=== PATIENT | female | born 1945 | race Caucasian/White ===

== ENCOUNTER 2017-05-17 09:24 | Inpatient (IN) | payer OTHER, MEDICARE ==
[~2017-05-17] VITALS: Ht 154.9 cm; Wt 45.0 kg
[2017-05-17] VITALS (8 sets, daily range): BP systolic 116–132; BP diastolic 65–77; PULSE 51–83; RESP 17–18; TEMP 97.8–98.2; O2SAT 95–100
[2017-05-17] MEDS ORDERED: SODIUM CHLORIDE 0.9% FLUSH 10 ML FLUSH IVF PRN (09:45)
--- NOTE | 2017-05-17 09:53 | PD ---
HPI Chief Complaint: Neuro Symptoms/ Deficits Time Seen by Provider: 09:49 Travel History International Travel<30 days: No Contact w/Intl Traveler<30days: No Traveled to known affect area: No History of Present Illness HPI 71-year-old female with history of no significant past medical issues except smoking, presents to the ER today because she woke up at around 4:30 AM this morning feeling generally weak, headache, felt like her right side wasn't feeling right, and then woke up again at 7:30 this morning and had a right facial droop, right sided weakness, but was able to get herself to her neighbors house and called ambulance. On initial evaluation, EMS noted that she did have some right facial droop, right arm weakness, right leg weakness. She however, he is feeling better, the weakness is improving. She states that the last time she felt normal was around 2 AM. She states the headache has gone away. She denies a chest pains, shortness of breath, or any other symptoms. She denies any previous episodes. Modifying Factors: None Associated Signs & Symptoms: Headache, right arm and leg weakness, right facial droop Risk Factors: None PFSH Past Medical History Medical History: Denies Significant Hx Tetanus Vaccination: > 5 Years Influenza Vaccination: No Past Surgical History Surgical History: No Previous Surgery Social History Alcohol Use: No Tobacco Use: Yes (1/2 PPD) Substance Use: No Allergies-Medications (Allergen,Severity, Reaction): Coded Allergies: No Known Allergies (Unverified , 05/17/17) Reported Meds & Prescriptions Reported Meds & Active Scripts Active No Active Prescriptions or Reported Medications Review of Systems Except as stated in HPI: all other systems reviewed are Neg Physical Exam Narrative GENERAL: Well-developed elderly white female patient currently in mild distress. Awake and oriented 3. SKIN: Focused skin assessment warm/dry. HEAD: Atraumatic. Normocephalic. EYES: Pupils equal and round. No scleral icterus. No injection or drainage. ENT: No nasal bleeding or discharge. Mucous membranes pink and moist. NECK: Trachea midline. No JVD. CARDIOVASCULAR: Regular rate and rhythm. No murmur appreciated. RESPIRATORY: No accessory muscle use. Clear to auscultation. Breath sounds equal bilaterally. GASTROINTESTINAL: Abdomen soft, non-tender, nondistended. Hepatic and splenic margins not palpable. MUSCULOSKELETAL: No obvious deformities. No clubbing. No cyanosis. No edema. NEUROLOGICAL: Awake and alert. No obvious cranial nerve deficits except for mild facial asymmetry. Motor grossly within normal limits. Normal speech. No pronator drift. PSYCHIATRIC: Appropriate mood and affect; insight and judgment normal. Data Data Last Documented VS Vital Signs Date Time Temp Pulse Resp B/P (MAP) Pulse Ox O2 Delivery O2 Flow Rate FiO2 05/17/17 09:51 18 97 Nasal Cannula 2.00 05/17/17 09:37 83 05/17/17 09:33 98.1 132/77 (95) Orders Orders Electrocardiogram (05/17/17 09:40) Prothrombin Time / Inr (Pt) (05/17/17 09:40) Act Partial Throm Time (Ptt) (05/17/17 09:40) Complete Blood Count With Diff (05/17/17 09:40) Comprehensive Metabolic Panel (05/17/17 09:40) Ct Brain W/O Iv Contrast(Rout) (05/17/17 09:40) Chest, Single Ap (05/17/17 09:40) Ecg Monitoring (05/17/17 09:40) Iv Access Insert/Monitor (05/17/17 09:40) Oximetry (05/17/17 09:40) Sodium Chloride 0.9% Flush (Ns Flush) (05/17/17 09:45) Aspirin (Aspirin) (05/17/17 10:45) Labs Laboratory Tests Test 05/17/17 09:45 White Blood Count 4.0 TH/MM3 Red Blood Count 4.55 MIL/MM3 Hemoglobin 14.3 GM/DL Hematocrit 43.1 % Mean Corpuscular Volume 94.7 FL Mean Corpuscular Hemoglobin 31.4 PG Mean Corpuscular Hemoglobin Concent 33.1 % Red Cell Distribution Width 15.5 % Platelet Count 232 TH/MM3 Mean Platelet Volume 7.7 FL Neutrophils (%) (Auto) 60.0 % Lymphocytes (%) (Auto) 29.5 % Monocytes (%) (Auto) 8.2 % Eosinophils (%) (Auto) 0.9 % Basophils (%) (Auto) 1.4 % Neutrophils # (Auto) 2.4 TH/MM3 Lymphocytes # (Auto) 1.2 TH/MM3 Monocytes # (Auto) 0.3 TH/MM3 Eosinophils # (Auto) 0.0 TH/MM3 Basophils # (Auto) 0.1 TH/MM3 CBC Comment DIFF FINAL Differential Comment Prothrombin Time 11.2 SEC Prothromb Time International Ratio 1.0 RATIO Activated Partial Thromboplast Time 23.9 SEC Blood Urea Nitrogen 7 MG/DL Creatinine 0.63 MG/DL Random Glucose 123 MG/DL Total Protein 6.6 GM/DL Albumin 3.5 GM/DL Calcium Level 8.5 MG/DL Alkaline Phosphatase 90 U/L Aspartate Amino Transf (AST/SGOT) 15 U/L Alanine Aminotransferase (ALT/SGPT) 15 U/L Total Bilirubin 0.4 MG/DL Sodium Level 141 MEQ/L Potassium Level 3.6 MEQ/L Chloride Level 106 MEQ/L Carbon Dioxide Level 25.8 MEQ/L Anion Gap 9 MEQ/L Estimat Glomerular Filtration Rate 93 ML/MIN MDM Medical Decision Making Medical Screen Exam Complete: Yes Emergency Medical Condition: Yes Medical Record Reviewed: Yes Interpretation(s) Laboratory Tests Test 05/17/17 09:45 Monocytes (%) (Auto) 8.2 % (0.0-8.0) Activated Partial Thromboplast Time 23.9 SEC (24.3-30.1) Random Glucose 123 MG/DL (74-106) Last [address] 05/17/17 0940 Signed Impressions: Service Date/Time: Wednesday, May 17, 2017 09:54 - CONCLUSION: No acute intracranial abnormality is identified. There is an old lacune in the left basal ganglia. Chan Villegas MD Chest X-Ray 05/17/17 0940 Signed Impressions: Service Date/Time: Wednesday, May 17, 2017 09:42 - CONCLUSION: No acute cardiopulmonary abnormality is identified. Chan Villegas MD Differential Diagnosis Headache, right facial droop, right sided weakness: Metabolic issues versus atypical migraine versus CVA versus acute intracranial processes Narrative Course Patient's weakness seems to be improving. The only thing of seeing in the ER is a facial asymmetry. CAT scan did not show any signs of acute intercranial processes and aspirin was given in the ER. Lab work was otherwise unremarkable. At this point, my plan would be to admit the patient for further evaluation treatment. She is not a TPA candidate especially considering start time of possibly at 2 AM. Case was discussed with Dr. Cooper for admission. Diagnosis Primary Impression: CVA (cerebral vascular accident) Admitting Information Admitting Physician Requests: Admit Scripts No Active Prescriptions or Reported Meds Maya Jo MD May 17, 2017 09:52
--- NOTE | 2017-05-17 10:03 | RADRPT ---
EXAM DATE/TIME: 05/17/2017 09:42 [facility] COMPARISON: No previous studies available for comparison. INDICATIONS : Short of breath MEDICAL HISTORY : Cardiovascular disease. SURGICAL HISTORY : None. ENCOUNTER: Initial ACUITY: 1 day PAIN SCORE: 0/10 LOCATION: chest FINDINGS: Portable AP view of the chest demonstrates a normal-sized cardiac silhouette. No effusion, consolidat ion, or pneumothorax is visualized. The bones and soft tissues demonstrate no acute abnormality. EKG lines overlie the patient. CONCLUSION: No acute cardiopulmonary abnormality is identified. Chan Villegas MD on May 17, 2017 at 10:01 Board Certified Radiologist. This report was verified electronically.
[2017-05-17 10:23] LABS: AUTOMATED NEUTROPHIL # 2.4 TH/MM3 (1.8-7.7); BASOPHIL # 0.1 TH/MM3 (0-0.2); BASOPHIL % 1.4 % (0.0-2.0); EOSINOPHIL % 0.9 % (0.0-4.0); HEMATOCRIT 43.1 % (35.0-46.0); HEMO FLAGS DIFF FINAL; LYMPH % 29.5 % (9.0-44.0); LYMPHOCYTE # 1.2 TH/MM3 (1.0-4.8); MEAN CELL VOLUME 94.7 FL (80.0-100.0); MEAN CORPUSCULAR HEMOGLOBIN 31.4 PG (27.0-34.0); MEAN CORPUSCULAR HGB CONC 33.1 % (32.0-36.0); MONO % 8.2 % (0.0-8.0); PLATELET COUNT 232 TH/MM3 (150-450); RED BLOOD COUNT 4.55 MIL/MM3 (4.00-5.30); RED CELL DISTRIBUTION WIDTH 15.5 % (11.6-17.2)
--- NOTE | 2017-05-17 10:25 | RADRPT ---
EXAM DATE/TIME: 05/17/2017 09:54 [facility] COMPARISON: No previous studies available for comparison. INDICATIONS : Right sided weakness; right facial droop. RADIATION DOSE: 26.62 CTDIvol (mGy) MEDICAL HISTORY : None SURGICAL HISTORY : None. ENCOUNTER: Initial ACUITY: 1 day PAIN SCALE: 0/10 LOCATION: cranial TECHNIQUE: Multiple contiguous axial images were obtained of the head. Using automated exposure control and adj ustment of the mA and/or kV according to patient size, radiation dose was kept as low as reasonably a chievable to obtain optimal diagnostic quality images. DICOM format image data is available electro nically for review and comparison. FINDINGS: CEREBRUM: There is mild generalized atrophy within the range of expected given the patient's age. Ventricles ar e normal in size. There is a well-defined 5 mm low density in the left basal ganglia. No evidence of midline shift, mass lesion, hemorrhage or acute infarction. No extra-axial fluid collections are se en. POSTERIOR FOSSA: The cerebellum and brainstem demonstrate no acute finding. The 4th ventricle is midline. The cerebe llopontine angle is unremarkable. EXTRACRANIAL: Visualized sinuses are clear. SKULL: The calvaria is intact. No evidence of skull fracture. CONCLUSION: No acute intracranial abnormality is identified. There is an old lacune in the left basal ganglia. Chan Villegas MD on May 17, 2017 at 10:21 Board Certified Radiologist. This report was verified electronically.
[2017-05-17 10:31] LABS: APTT (PATIENT) 23.9 SEC (24.3-30.1); PROTHROMBIN TIME - PATIENT 11.2 SEC (9.8-11.6)
[2017-05-17 10:45] LABS: ANION GAP 9 MEQ/L (5-15); AST (GOT) 15 U/L (15-37); BICARBONATE 25.8 MEQ/L (21.0-32.0); BLOOD UREA NITROGEN 7 MG/DL (7-18); CHLORIDE 106 MEQ/L (98-107); GLOMERULAR FILTRATION RATE 93 ML/MIN (>89); POTASSIUM 3.6 MEQ/L (3.5-5.1); SODIUM (NA) 141 MEQ/L (136-145)
[2017-05-17] MEDS ORDERED: ASPIRIN 325 MG TAB PO ONE (10:45)
[2017-05-17 10:49] LABS: ALKALINE PHOSPHATASE 90 U/L (45-117); ALT (GPT) 15 U/L (10-53); TOTAL BILIRUBIN ADULT 0.4 MG/DL (0.2-1.0)
[2017-05-17] MEDS ORDERED: ACETAMINOPHEN 325 MG TAB PO PRN ×2 (11:15)
[2017-05-17] MEDS ORDERED: NALOXONE HCL 0.4 MG/ML AMP IV PUSH PRN (11:15)
[2017-05-17] MEDS ORDERED: SODIUM CHLORIDE 0.9% FLUSH 10 ML FLUSH IV FLUSH PRN ×2 (11:15→11:30)
[2017-05-17] MEDS ORDERED: ENOXAPARIN SODIUM 30 MG/0.3 ML SYRINGE SQ SCH (11:15)
--- NOTE | 2017-05-17 11:29 | HHI.HP ---
[facility] No Primary Care Physician Admission Diagnosis CVA/TIA Diagnoses: Chief Complaint: Right-sided neuro symptoms Travel History International Travel<30 Days: No Contact w/Intl Traveler <30 Da: No Traveled to Known Affected Are: No History of Present Illness 71-year-old female with past medical history of tobacco abuse who presented for right-sided neuro symptoms. The patient states she woke up about 4 AM to go to the bathroom and noticed a mild frontal headache. She went back to sleep until about 7:30 AM. She states she woke up about 7:30 AM and noticed that her right side was more numb. She states that her hand and arm were more weak and uncoordinated than normal. She also states that that time she noticed her speech was a little bit slurred. At this time she feels that the numbness, weakness, slurred speech has improved. The headache is resolved. She denies any swallowing difficulties or vision changes. She denies any chest pain, shortness breath, recent illness, nausea, vomiting, diarrhea. She has smoked for the past 50 years. She denies any previous episodes like this. The patient currently denies any symptoms. She says that she does not have any numbness or tingling. She says her strength is currently back to normal. She says she is still smoking and drinks 4-5 beers daily. Review of Systems Except as stated in HPI: all other systems reviewed are Neg Past Family Social History Past Medical History Patient denies Past Surgical History The patient denies Reported Medications None per patient Allergies: Coded Allergies: No Known Allergies (Unverified , 05/17/17) Active Ordered Medications Current Medications Medications (Trade) Dose Ordered Sig/Natacha Route Start Time Stop Time Status Last Admin (NS Flush) 2 ml UNSCH PRN IVF 05/17/17 09:45 Sodium Chloride 1,000 ml @ 75 mls/hr [id number] IV 05/17/17 11:02 (NS Flush) 2 ml UNSCH PRN IV FLUSH 05/17/17 11:15 (NS Flush) 2 ml BID IV FLUSH 05/17/17 21:00 (Tylenol) 650 mg Q4H PRN PO 05/17/17 11:15 (Lovenox Inj) 30 mg Q24H SQ 05/17/17 11:15 (Tylenol) 650 mg Q6H PRN PO 05/17/17 11:15 (Narcan Inj) 0.4 mg UNSCH PRN IV PUSH 05/17/17 11:15 (Diamond-Colace) 1 tab BID PO 05/17/17 21:00 Family History No known significant family medical history, denies stroke or TIA Social History She smokes 7-8 cigarettes daily for the past 50 years Drinks 4-5 beers daily, denies any problems with withdrawals Denies any drug use Physical Exam Vital Signs Vital Signs Date Time Temp Pulse Resp B/P (MAP) Pulse Ox O2 Delivery O2 Flow Rate FiO2 05/17/17 11:09 Nasal Cannula 2.00 05/17/17 09:51 18 97 Nasal Cannula 2.00 05/17/17 09:37 83 18 95 Room Air 05/17/17 09:33 98.1 83 18 132/77 (95) 95 Physical Exam GENERAL: Well-developed well-nourished. In no acute distress. SKIN: Warm and dry. No lesions noted. HEENT: Normocephalic. Pupils equal and round and reactive to light. EOMs intact. Mucous membranes pink and moist. CARDIOVASCULAR: Regular rate and rhythm. No murmur appreciated. RESPIRATORY: No accessory muscle use. Clear to auscultation. Breath sounds equal bilaterally. GASTROINTESTINAL: Abdomen soft, non-tender, nondistended. Bowel sounds x4. MUSCULOSKELETAL: No obvious deformities. No clubbing or cyanosis. No edema. NEUROLOGICAL: Awake and alert. Right-sided facial droop. No tongue deviation. Strength 4/5 on the right and 5/5 on the left. Sensation grossly intact bilaterally. No pronator drift. Normal speech. PSYCHIATRIC: Appropriate mood and affect; insight and judgment normal. Agree with above exam Laboratory Laboratory Tests Test 05/17/17 09:45 White Blood Count 4.0 Red Blood Count 4.55 Hemoglobin 14.3 Hematocrit 43.1 Mean Corpuscular Volume 94.7 Mean Corpuscular Hemoglobin 31.4 Mean Corpuscular Hemoglobin Concent 33.1 Red Cell Distribution Width 15.5 Platelet Count 232 Mean Platelet Volume 7.7 Neutrophils (%) (Auto) 60.0 Lymphocytes (%) (Auto) 29.5 Monocytes (%) (Auto) 8.2 Eosinophils (%) (Auto) 0.9 Basophils (%) (Auto) 1.4 Neutrophils # (Auto) 2.4 Lymphocytes # (Auto) 1.2 Monocytes # (Auto) 0.3 Eosinophils # (Auto) 0.0 Basophils # (Auto) 0.1 CBC Comment DIFF FINAL Differential Comment Prothrombin Time 11.2 Prothromb Time International Ratio 1.0 Activated Partial Thromboplast Time 23.9 Blood Urea Nitrogen 7 Creatinine 0.63 Random Glucose 123 Total Protein 6.6 Albumin 3.5 Calcium Level 8.5 Alkaline Phosphatase 90 Aspartate Amino Transf (AST/SGOT) 15 Alanine Aminotransferase (ALT/SGPT) 15 Total Bilirubin 0.4 Sodium Level 141 Potassium Level 3.6 Chloride Level 106 Carbon Dioxide Level 25.8 Anion Gap 9 Estimat Glomerular Filtration Rate 93 Result Diagram: 05/17/1745 05/17/17944 Imaging Last Impressions Head CT 05/17/17939 Signed Impressions: Service Date/Time: Wednesday, May 17, 2017 09:54 - CONCLUSION: No acute intracranial abnormality is identified. There is an old lacune in the left basal ganglia. Chan Villegas MD Chest X-Ray 05/17/17939 Signed Impressions: Service Date/Time: Wednesday, May 17, 2017 09:42 - CONCLUSION: No acute cardiopulmonary abnormality is identified. MD Brendon Samuel VTE Risk Assessment Robertrini VTE Risk Assessment: Mod/High Risk (score >= 2) Caprini Risk Assessment Model Point Value = 1 Point Value = 2 Point Value = 3 Point Value = 5 Age 41-60 Minor surgery BMI > 25 kg/m2 Swollen legs Varicose veins or History of unexplained or recurrent spontaneous Oral contraceptives or hormone replacement Sepsis (< 1 month) Serious lung disease, including pneumonia (< 1 month) Abnormal pulmonary function Acute myocardial infarction Congestive heart failure (< 1 month) History of inflammatory bowel disease Medical patient at bed rest Age 61-74 Arthroscopic surgery Major open surgery (> 45 min) Laparoscopic surgery (> 45 min) Malignancy Confined to bed (> 72 hours) Immobilizing plaster cast Central venous access Age >= 75 History of VTE Family history of VTE Factor V Leiden Prothrombin [id number] Lupus anticoagulant Anticardiolipin antibodies Elevated serum homocysteine Heparin-induced thrombocytopenia Other congenital or acquired thrombophilia Stroke (< 1 month) Elective arthroplasty Hip, pelvis, or leg fracture Acute spinal cord injury (< 1 month) Prophylaxis Regimen Total Risk Factor Score Risk Level Prophylaxis Regimen 0-1 Low Early ambulation 2 Moderate Order ONE of the following: *Sequential Compression Device (SCD) *Heparin 5000 units SQ BID 3-4 Higher Order ONE of the following medications: *Heparin 5000 units SQ TID *Enoxaparin/Lovenox 40 mg SQ daily (WT < 150 kg, CrCl > 30 mL/min) *Enoxaparin/Lovenox 30 mg SQ daily (WT < 150 kg, CrCl > 10-29 mL/min) *Enoxaparin/Lovenox 30 mg SQ BID (WT < 150 kg, CrCl > 30 mL/min) AND/OR *Sequential Compression Device (SCD) 5 or more Highest Order ONE of the following medications: *Heparin 5000 units SQ TID (Preferred with Epidurals) *Enoxaparin/Lovenox 40 mg SQ daily (WT < 150 kg, CrCl > 30 mL/min) *Enoxaparin/Lovenox 30 mg SQ daily (WT < 150 kg, CrCl > 10-29 mL/min) *Enoxaparin/Lovenox 30 mg SQ BID (WT < 150 kg, CrCl > 30 mL/min) AND *Sequential Compression Device (SCD) Assessment and Plan Assessment and Plan 71-year-old female with past medical history of tobacco abuse who presented for right-sided neuro symptoms Acute CVA vs TIA: Patient with acute onset of right-sided neurologic symptoms earlier today which are improving, but not yet resolved. Long history of tobacco abuse. Reviewed: Head CT with no acute intracranial abnormality, old left basilar lacune. -Standard stroke protocol including stroke scale, head of bed flat, swallow eval , neuro checks, permissive hypertension for now -Monitor on telemetry -Check brain MRI/MRA, carotid ultrasound, echocardiogram -Consult neurology -PT/OT/ST -IVF -Aspirin The patient says her symptoms have resolved. Continue workup as above. Await neurology consultation. Stressed smoking cessation. Alcohol abuse: Denies problem with withdrawals. Thiamine, folate, multivitamins. Ativan as needed. Encouraged patient to cut down on the amount of beers she drinks daily. Tobacco abuse: Strongly encouraged cessation. DVT prophylaxis: SCDs Discussed Condition With Patient, Dr. Nino Attending Statement The exam, history, and the medical decision-making described in the above note were completed with the assistance of the mid-level provider. I reviewed and agree with the findings presented. I attest that I had a [id number] encounter with the patient on the same day, and personally performed and documented my assessment and findings in the medical record. Faizan Goldman May 17, 2017 11:29 Andrea Nino DO May 17, 2017 13:34
[2017-05-17] MEDS ORDERED: ENALAPRILAT 1.25 MG/ML VIAL IV PRN (11:30)
[2017-05-17] MEDS ORDERED: GLUCAGON 1 MG/ML VIAL OTHER PRN (11:30)
[2017-05-17] MEDS ORDERED: DEXTROSE 50% IN WATER 50 ML VIAL(D50) IV PUSH PRN (11:30)
[2017-05-17] MEDS ORDERED: LORazepam 2 MG/ML VIAL IV PUSH PRN (11:45)
[2017-05-17] MEDS: SODIUM CHLOR 0.9% 1000 ML INJ 1,000 ML IV SCH ×2 (11:49→14:44)
[2017-05-17] MEDS: INSULIN ASPART SUPPLEMENTAL SCALE SQ SCH ×3 (12:00→21:00)
--- NOTE | 2017-05-17 14:06 | RADRPT ---
EXAM DATE/TIME: 05/17/2017 13:17 [facility] COMPARISON: CT BRAIN W/O CONTRAST, May 17, 2017, 9:54. INDICATIONS : Right sided weakness. MEDICAL HISTORY : None. SURGICAL HISTORY : None. ENCOUNTER: Initial ACUITY: 1 day PAIN SCORE: 0/10 LOCATION: cranial TECHNIQUE: Multiplanar, multisequence MRI of the brain was performed without contrast. FINDINGS: CEREBRUM: The ventricles are normal for age. No evidence of midline shift, mass lesion, hemorrhage or acute in farction. No extraaxial fluid collections are seen. The pituitary gland and suprasellar cistern are normal in configuration. WHITE MATTER: On the flair weighted images there are several small punctate foci of increased signal noted in the w mehnaz matter radius along the right lateral ventricle. POSTERIOR FOSSA: The cerebellum and brainstem are intact. The 4th ventricle is midline. The cerebellopontine angle is unremarkable. The cerebellar tonsils are normal in position. DIFFUSION IMAGING: No focal areas of restricted diffusion are seen. No evidence of acute infarction. EXTRACRANIAL: The visualized portions of the orbits and paranasal sinuses are unremarkable. CONCLUSION: 1. No acute hemorrhage or mass effect. 2. Mild atrophy and chronic small vessel ischemic changes. Andrea Shen MD on May 17, 2017 at 14:03 Board Certified Radiologist. This report was verified electronically.
--- NOTE | 2017-05-17 14:51 | RADRPT ---
EXAM DATE/TIME: 05/17/2017 13:17 [facility] COMPARISON: MRI BRAIN W/O CONTRAST, May 17, 2017, 13:17. INDICATIONS : Right sided weakness. MEDICAL HISTORY : None. SURGICAL HISTORY : None. ENCOUNTER: Initial ACUITY: 1 day PAIN SCORE: 0/10 LOCATION: cranial Please note a normal MRA of the brain does not entirely exclude the possibility of a small aneurysm, nor the possibility of distal intracranial vessel disease. TECHNIQUE: 3D time of flight MRA was performed. Source images, multiplanar STS MIP, and 3D volume MIP reconstru ctions were reviewed. FINDINGS: There is adequate visualization of the major intracranial arteries out to the second order branches. 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 There ap pears to be an embolus to the left trifurcation territory and with limited flow to the temporal branc h.. Posteriorly, patient is right vertebral dominant. The basilar tapers distally and becomes quite dimin utive proximal to the confluence of the posterior cerebral arteries. Heart normal posterior cervical arteries also have a large component feeder from the posterior communicating arteries off the anterio r circulation. No aneurysmal disease. CONCLUSION: 1. 1. MRA characteristic of an embolic event to the left trifurcation territory as above. 2. Distal basilar also becomes quite diminutive with marked tapering proximal to the confluence with the posterior cerebral arteries. Both posterior cerebral arteries have a prominent feeder from the po sterior communicating arteries off the anterior circulation, however. May 17, 2017 at 14:39 Board Certified Radiologist. This report was verified electronically.
--- NOTE | 2017-05-17 18:59 | RADRPT ---
EXAM DATE/TIME: 05/17/2017 17:36 [facility] COMPARISON: MRA BRAIN W/O CONTRAST, May 17, 2017, 13:17. MRI BRAIN W/O CONTRAST, May 17, 2017, 13:17 . INDICATIONS : Cerebrovascular accident. MEDICAL HISTORY : Right sided weakness. SURGICAL HISTORY : None. ENCOUNTER: Initial ACUITY: 1 day PAIN SCORE: 2/10 LOCATION: Bilateral neck PEAK SYSTOLIC VELOCITIES (cm/sec): ICA/CCA RATIO: Right: UTO Left: UTO ICA: Right: UTO Left: UTO CCA: Right: 63.4 Left: 77.4 ECA: Right: 173.1 Left: 96.0 VERTEBRAL: Right: 163.3 antegrade Left: UTO Elevated flow velocities and ICA/CCA ratios have been found to correlate with increased degrees of vessel stenosis, calculated as percentage of diameter relative to a normal segment of distal ICA/CCA FINDINGS: RIGHT CAROTID: The common carotid artery is patent and unremarkable in appearance with unremarkable appearing wavefo rm. No flow could be identified in the internal carotid artery. The external carotid artery was paten t and demonstrated increased velocities. LEFT CAROTID: The common carotid artery is patent and unremarkable in appearance with normal appearing waveform. No flow could be identified in the internal carotid artery. The external carotid artery was patent and demonstrated normal velocities. VERTEBRAL ARTERIES: Antegrade flow in the right vertebral artery with elevated velocities. No flow could be identified in the left vertebral artery. MISCELLANEOUS: None. CONCLUSION: 1. The common carotid arteries and external carotid arteries are patent bilaterally. No blood flow co uld be obtained in either internal carotid artery consistent with occlusions. 2. No flow could be obtained in the left vertebral artery. 3. The right vertebral artery demonstrate antegrade flow with elevated velocity. Further evaluation with CT angiography is recommended. Andrea Shen MD on May 17, 2017 at 18:50 Board Certified Radiologist. This report was verified electronically.
[2017-05-17] MEDS: DOCUSATE SODIUM 50 MG/SENNA 8.6 MG TAB PO SCH (20:10)
[2017-05-17] MEDS ORDERED: IOHEXOL 350 MG/ML 10 ML VIAL (for RAD DIAG) IVCONTRAST ONE (20:30)
[2017-05-17] MEDS: SODIUM CHLORIDE 0.9% FLUSH 10 ML FLUSH IV FLUSH SCH (21:00)
[2017-05-17] MEDS ORDERED: SODIUM CHLORIDE 0.9% FLUSH 10 ML FLUSH IV FLUSH SCH (21:00)
--- NOTE | 2017-05-17 21:06 | MB ---
cc: ROZINA FRANCO M.D. DATE OF CONSULTATION 05/17/2017 HISTORY OF THE PRESENT ILLNESS She is a 71-year-old seen in neurological consultation. The patient lives alone and she woke up that 04:00 a.m. with a headache. It was frontal and not severe. She went to the bathroom and went back to sleep and then again woke up at 07:30 and there was a slight headache but then there was some numbness on the right arm and leg. It appears that when she arrived in the emergency room her numbness improved and she feels the headache is gone and she has no symptoms when I saw her this evening. She was apparently acting or noted to be normal around 2 o'clock in the morning. She was not felt to be a TPA candidate when she came to the emergency room this morning. She does not take any medications at home whatsoever. She admits having droopy eyes, especially the left side for quite some time and she saw the eye doctor for this and told that if she wanted to have an eye lift they would do that. She has no double vision. No blurriness. EXAMINATION The neurological exam showed the patient to be alert, pleasant, oriented. There is no facial weakness. She seems to have full or nearly full ocular movement. She has bilateral ptosis but left worse than right. The pupils were about same size and reactive. She gazed to the right and left but she may have some left eye gaze impairment downward and upward, though I was not completely convinced of this. The exam is somewhat difficult due to her droopy eye and I had to manually open, raise both eyelids. There is no speech difficulty. She raised the arms and [id number] testing is normal. The pyrotechnic assembler is symmetrical. She resists well at the lower extremities on the bedside exam. Her reflexes were 1+, diminished at the ankles. Plantar responses were flexor. IMAGING Ancillary data, the MRI brain showed no acute abnormality but interestingly the head MRA is showing an apparent embolus in the left trifurcation. The distal basilar is quite diminutive and there is a marked tapering proximal to the confluence with the posterior cerebral arteries. The customer support professional have prominent feature from the posterior communicating arteries. CBC is normal. Chemistries essentially normal, blood sugar being 123. ASSESSMENT Resolved neurological deficits including headaches and right sided weakness. Interestingly the MRA head shows left trifurcation embolism. Evidently at this point she is not a candidate for intervention. She has no significant medical history and a drinks four beers a day and smokes 10 cigarettes a day. We need to monitor heart looking for atrial fibrillation and need an echocardiogram. May need prolonged / extended heart monitor. The carotid ultrasound showed no flow in the either internal carotid artery consistent with occlusion. We will need further evaluation on this. We will request a CT angio neck. She also has ptosis left more than right with questionable left eye movement disorder but this is not acute and she is not symptomatic. On aspirin. On thiamine and I will check a lipid profile. I will follow the neurological care. Thank you for asking us to participate in her care. MD MARCK Erickson/KK /7:47 PM /8:44 PM
--- NOTE | 2017-05-17 21:34 | RADRPT ---
EXAM DATE/TIME: 05/17/2017 20:20 [place] COMPARISON: No previous studies available for comparison. INDICATIONS : Abnormal carotid ultrasound demonstrating bilateral internal carotid occlusion. Patient has right lucero ed weakness and abnormal MRA of the brain demonstrating an apparent embolus to the left trifurcation territory. IV CONTRAST: 75 cc Omnipaque 350 (iohexol) IV RADIATION DOSE: 13.07 CTDIvol (mGy) MEDICAL HISTORY : None SURGICAL HISTORY : None. ENCOUNTER: Initial ACUITY: 1 day PAIN SCALE: 0/10 LOCATION: Bilateral neck Elevated flow velocities and ICA/CCA ratios have been found to correlate with increased degrees of vessel stenosis, calculated as percentage of diameter relative to a normal segment of distal ICA/CCA. TECHNIQUE: Volumetric scanning was performed using a multirow detector CT scanner. The data was post processed with a variety of visualization algorithms including full-volume maximum intensity projection, multip lanar sliding thin-slab reformation, curved-planar reformation, and surface-rendering techniques. Us ing automated exposure control and adjustment of the mA and/or kV according to patient size, radiatio n dose was kept as low as reasonably achievable to obtain optimal diagnostic quality images. DICOM f ormat image data is available electronically for review and comparison. FINDINGS: AORTIC ARCH: There is a three-vessel origin of the great vessels from the aorta. No evidence of ostial narrowing. There is mild calcification. RIGHT CAROTID: The common carotid artery is intact. There is calcific plaque common carotid artery. The proximal int ernal carotid artery is occluded near its origin. The external carotid artery is intact. LEFT CAROTID: The common carotid artery is intact. There is calcific plaque in the common carotid artery with occlu ruth of the internal carotid artery at the origin. The external carotid artery is intact. VERTEBRALS: The left vertebral artery is small in size but is patent. The right is unremarkable. The basal artery is intact. No stenotic lesions are seen. CONCLUSION: 1. 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 2. The vertebral arteries are patent. The left vertebral artery is small in size. Andrea Shen MD on May 17, 2017 at 21:26 Board Certified Radiologist. This report was verified electronically.
[2017-05-18] VITALS (9 sets, daily range): BP systolic 70–190; BP diastolic 38–88; PULSE 60–71; RESP 16–18; TEMP 97.9–98.2; O2SAT 94–100
[2017-05-18 06:12] LABS: AUTOMATED NEUTROPHIL # 2.4 TH/MM3 (1.8-7.7); BASOPHIL # 0.1 TH/MM3 (0-0.2); BASOPHIL % 1.5 % (0.0-2.0); EOSINOPHIL # 0.1 TH/MM3 (0-0.4); EOSINOPHIL % 2.1 % (0.0-4.0); HEMATOCRIT 41.6 % (35.0-46.0); HEMO FLAGS DIFF FINAL; LYMPH % 36.6 % (9.0-44.0); LYMPHOCYTE # 1.7 TH/MM3 (1.0-4.8); MEAN CORPUSCULAR HEMOGLOBIN 31.5 PG (27.0-34.0); MEAN CORPUSCULAR HGB CONC 33.5 % (32.0-36.0); MONO % 10.3 % (0.0-8.0); NEUT % 49.5 % (16.0-70.0); PLATELET COUNT 208 TH/MM3 (150-450); RED BLOOD COUNT 4.42 MIL/MM3 (4.00-5.30); RED CELL DISTRIBUTION WIDTH 15.2 % (11.6-17.2); WHITE BLOOD COUNT 4.8 TH/MM3 (4.0-11.0)
[2017-05-18 06:28] LABS: ALT (GPT) 13 U/L (10-53); ANION GAP 7 MEQ/L (5-15); AST (GOT) 15 U/L (15-37); BICARBONATE 27.3 MEQ/L (21.0-32.0); BLOOD UREA NITROGEN 7 MG/DL (7-18); CHLORIDE 108 MEQ/L (98-107); GLOMERULAR FILTRATION RATE 137 ML/MIN (>89); POTASSIUM 3.6 MEQ/L (3.5-5.1); SODIUM (NA) 142 MEQ/L (136-145)
[2017-05-18 06:30] LABS: ALKALINE PHOSPHATASE 77 U/L (45-117); HDL CHOLESTEROL 82.3 MG/DL (40.0-60.0); LDL CHOLESTEROL 73 MG/DL (0-99); TOTAL BILIRUBIN ADULT 0.4 MG/DL (0.2-1.0)
[2017-05-18] MEDS: INSULIN ASPART SUPPLEMENTAL SCALE SQ SCH ×4 (08:00→21:00)
[2017-05-18] MEDS: ASPIRIN 81 MG CHEW TAB PO SCH (08:33)
[2017-05-18] MEDS: THIAMINE HCL 100 MG TAB PO SCH (08:34)
[2017-05-18] MEDS: FOLIC ACID 1 MG TAB PO SCH (08:34)
[2017-05-18] MEDS: SODIUM CHLORIDE 0.9% FLUSH 10 ML FLUSH IV FLUSH SCH ×2 (08:34→20:59)
[2017-05-18] MEDS: MULTIVITAMINS/MINERALS THERAPEUTIC TAB PO SCH (08:34)
[2017-05-18] MEDS: DOCUSATE SODIUM 50 MG/SENNA 8.6 MG TAB PO SCH ×2 (08:35→20:59)
--- NOTE | 2017-05-18 10:47 | HHI.PR ---
Subjective Remarks Follow-up for embolic TIA. RN at bedside. The patient is doing well today. She states she feels tired. She denies any further headache, slurred speech, numbness, tingling, weakness. She is back to her baseline. She wants to know the results of her neck imaging. Discussed results of current testing and CODE STATUS. Objective Vitals Vital Signs Date Time Temp Pulse Resp B/P (MAP) Pulse Ox O2 Delivery O2 Flow Rate FiO2 05/18/17 08:12 97.9 62 16 190/88 (122) 94 05/18/17 07:30 100 Nasal Cannula 2.00 05/18/17 04:11 98.2 64 18 120/56 (77) 100 05/18/17 04:02 70 05/18/17 01:27 98 Nasal Cannula 1.00 05/17/17 23:11 98.2 66 17 119/65 (83) 99 05/17/17 23:10 51 05/17/17 20:23 97.8 62 17 128/69 (88) 100 05/17/17 20:00 57 05/17/17 14:14 98.0 58 18 116/72 (87) 100 05/17/17 12:19 05/17/17 11:47 63 18 117/71 (86) 99 Nasal Cannula 2.00 05/17/17 11:09 Nasal Cannula 2.00 I/O 05/17/17 05/17/17 05/17/17 05/18/17 05/18/17 05/18/17 07:00 15:00 23:00 07:00 15:00 23:00 Intake Total 0 ml 265 ml Balance 0 ml 265 ml Intake Oral 0 ml IV Total 265 ml # Voids 0 2 Result Diagram: 05/18/17 0555 05/18/17 0555 Imaging Last Impressions Head CT 05/17/1740 Signed Impressions: Service Date/Time: Wednesday, May 17, 2017 09:54 - CONCLUSION: No acute intracranial abnormality is identified. There is an old lacune in the left basal ganglia. Chan Villegas MD Chest X-Ray 05/17/17 0940 Signed Impressions: Service Date/Time: Wednesday, May 17, 2017 09:42 - CONCLUSION: No acute cardiopulmonary abnormality is identified. Chan Villegas MD Neck CTA 05/17/17 Signed Impressions: Service Date/Time: Wednesday, May 17, 2017 20:20 - CONCLUSION: 1. 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 2. The vertebral arteries are patent. The left vertebral artery is small in size. Andrea Shen MD Head Magnetic Resonance Angiography 05/17/17 Signed Impressions: Service Date/Time: Wednesday, May 17, 2017 13:17 - CONCLUSION: 1. 1. MRA characteristic of an embolic event to the left trifurcation territory as above. 2. Distal basilar also becomes quite diminutive with marked tapering proximal to the confluence with the posterior cerebral arteries. Both posterior cerebral arteries have a prominent feeder from the posterior communicating arteries off the anterior circulation, however. May 17, 2017 at 14:39 Board Certified Radiologist. This report was verified electronically. Carotid Artery Ultrasound 05/17/17 Signed Impressions: Service Date/Time: Wednesday, May 17, 2017 17:36 - CONCLUSION: 1. The common carotid arteries and external carotid arteries are patent bilaterally. No blood flow could be obtained in either internal carotid artery consistent with occlusions. 2. No flow could be obtained in the left vertebral artery. 3. The right vertebral artery demonstrate antegrade flow with elevated velocity. Further evaluation with CT angiography is recommended. Andrea Shne MD Brain MRI 05/17/17 Signed Impressions: Service Date/Time: Wednesday, May 17, 2017 13:17 - CONCLUSION: 1. No acute hemorrhage or mass effect. 2. Mild atrophy and chronic small vessel ischemic changes. Andrea Shen MD Objective Remarks GENERAL: Well-developed well-nourished. In no acute distress. SKIN: Warm and dry. No lesions noted. HEENT: Normocephalic. Pupils equal and round. Mucous membranes pink and moist. Bilateral carotid bruits seem to be present on auscultation. CARDIOVASCULAR: Regular rate and rhythm. No murmur appreciated. RESPIRATORY: No accessory muscle use. Clear to auscultation. Breath sounds equal bilaterally. GASTROINTESTINAL: Abdomen soft, non-tender, nondistended. Bowel sounds x4. MUSCULOSKELETAL: No obvious deformities. No clubbing or cyanosis. No edema. NEUROLOGICAL: Awake and alert. Slight facial droop on the right. Strength 5/5 in all extremities. Normal speech. PSYCHIATRIC: Appropriate mood and affect; insight and judgment normal. A/P Assessment and Plan 71-year-old female with past medical history of tobacco abuse who presented for right-sided neuro symptoms Acute CVA vs TIA: Patient with acute onset of right-sided neurologic symptoms earlier today which are improving, but not yet resolved. Long history of tobacco abuse. Reviewed: Head CT with no acute intracranial abnormality, old left basilar lacune. EKG shows sinus bradycardia, rate 55. Brain MRI showed no acute hemorrhage or mass effect; chronic changes. Brain MRA showed embolic event to the left trifurcation territory. Carotid ultrasound showed bilateral internal carotid artery occlusions and no flow in the left vertebral. Neck CTA showed bilateral occlusion of the internal carotid arteries and patent vertebral arteries. -Standard stroke protocol including stroke scale, head of bed flat, swallow eval , neuro checks, permissive hypertension for now -Monitor on telemetry -Check echocardiogram -Consulted neurology, D/W Dr. Mock, and agrees with aspirin, recommends following up echocardiogram to rule out other embolic source and aggressive control of LDL, he will follow-up -PT/OT/ST, soft diet per ST -IVF -Aspirin -Lipid profile shows LDL 73, goal 60 per neurology, start Lipitor Carotid occlusions: Imaging as above. Discussed with vascular surgery, Dr. Cueva, recommends likely medical management but he will evaluate the patient. -Vascular surgery consulted -Continue aspirin and statin as above Alcohol abuse: No sign of withdrawals. Thiamine, folate, multivitamins. Ativan as needed. Full code Faizan Goldman May 18, 2017 10:47
[2017-05-18 13:27] LABS: HEMOGLOBIN A1a 1.2 %; HEMOGLOBIN A1b 1.4 %; HEMOGLOBIN Ao 85.2 %; HEMOGLOBIN F 0.4 %; HEMOGLOBIN LA1C 2.3 %; HEMOGLOBIN P3 3.7 %
--- NOTE | 2017-05-18 13:29 | PD.VS.CON ---
History of Present Illness Chief Complaint: Sudden onset Right sided weakness/Headache/Slurred speech Resolved Consult Requested by: History of Present Illness Ms. 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[employer]) Family History None - Per patient Home Medications No Active Prescriptions or Reported Meds Coded Allergies: No Known Allergies (Unverified , 05/17/17) Physical Exam Vitals/I&O Date Time Temp Pulse Resp B/P (MAP) Pulse Ox O2 Delivery O2 Flow Rate FiO2 05/18/17 11:16 98.2 71 16 125/79 (94) 97 05/18/17 08:12 97.9 62 16 190/88 (122) 94 05/18/17 07:30 100 Nasal Cannula 2.00 05/18/17 04:11 98.2 64 18 120/56 (77) 100 05/18/17 04:02 70 05/18/17 01:27 98 Nasal Cannula 1.00 05/17/17 23:11 98.2 66 17 119/65 (83) 99 05/17/17 23:10 51 05/17/17 20:23 97.8 62 17 128/69 (88) 100 05/17/17 20:00 57 05/17/17 14:14 98.0 58 18 116/72 (87) 100 05/18/17 05/18/17 05/18/17 07:00 15:00 23:00 Intake Total 265 ml Balance 265 ml Neuro: A&OX3 GCS15 Neck: No JVD distention Heart: +S1,S2 Extremities: equal chili powder mixer strength Upper extremities 5/5 strength Lower extremity 5/5 strength Pt ambulated the hallway w/o difficulty Laboratory Tests Test 05/18/17 05:55 White Blood Count 4.8 Red Blood Count 4.42 Hemoglobin 13.9 Hematocrit 41.6 Mean Corpuscular Volume 94.0 Mean Corpuscular Hemoglobin 31.5 Mean Corpuscular Hemoglobin Concent 33.5 Red Cell Distribution Width 15.2 Platelet Count 208 Mean Platelet Volume 7.6 Neutrophils (%) (Auto) 49.5 Lymphocytes (%) (Auto) 36.6 Monocytes (%) (Auto) 10.3 Eosinophils (%) (Auto) 2.1 Basophils (%) (Auto) 1.5 Neutrophils # (Auto) 2.4 Lymphocytes # (Auto) 1.7 Monocytes # (Auto) 0.5 Eosinophils # (Auto) 0.1 Basophils # (Auto) 0.1 CBC Comment DIFF FINAL Differential Comment Blood Urea Nitrogen 7 Creatinine 0.45 Random Glucose 81 Total Protein 6.2 Albumin 3.0 Calcium Level 8.2 Alkaline Phosphatase 77 Aspartate Amino Transf (AST/SGOT) 15 Alanine Aminotransferase (ALT/SGPT) 13 Total Bilirubin 0.4 Sodium Level 142 Potassium Level 3.6 Chloride Level 108 Carbon Dioxide Level 27.3 Anion Gap 7 Estimat Glomerular Filtration Rate 137 Triglycerides Level 74 Cholesterol Level 170 LDL Cholesterol 73 HDL Cholesterol 82.3 Cholesterol/HDL Ratio 2.06 Last [address] 05/17/1740 Signed Impressions: Service Date/Time: Wednesday, May 17, 2017 09:54 - CONCLUSION: No acute intracranial abnormality is identified. There is an old lacune in the left basal ganglia. Chan Villegas MD Chest X-Ray 05/17/1740 Signed Impressions: Service Date/Time: Wednesday, May 17, 2017 09:42 - CONCLUSION: No acute cardiopulmonary abnormality is identified. Chan Villegas MD Neck CTA 05/17/17 0000 Signed Impressions: Service Date/Time: Wednesday, May 17, 2017 20:20 - CONCLUSION: 1. 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 2. The vertebral arteries are patent. The left vertebral artery is small in size. Andrea Shen MD Head Magnetic Resonance Angiography 05/17/17 0000 Signed Impressions: Service Date/Time: Wednesday, May 17, 2017 13:17 - CONCLUSION: 1. 1. MRA characteristic of an embolic event to the left trifurcation territory as above. 2. Distal basilar also becomes quite diminutive with marked tapering proximal to the confluence with the posterior cerebral arteries. Both posterior cerebral arteries have a prominent feeder from the posterior communicating arteries off the anterior circulation, however. May 17, 2017 at 14:39 Board Certified Radiologist. This report was verified electronically. Carotid Artery Ultrasound 05/17/17 0000 Signed Impressions: Service Date/Time: Wednesday, May 17, 2017 17:36 - CONCLUSION: 1. The common carotid arteries and external carotid arteries are patent bilaterally. No blood flow could be obtained in either internal carotid artery consistent with occlusions. 2. No flow could be obtained in the left vertebral artery. 3. The right vertebral artery demonstrate antegrade flow with elevated velocity. Further evaluation with CT angiography is recommended. Andrea Shen MD Brain MRI 05/17/17 0000 Signed Impressions: Service Date/Time: Wednesday, May 17, 2017 13:17 - CONCLUSION: 1. No acute hemorrhage or mass effect. 2. Mild atrophy and chronic small vessel ischemic changes. Andrea Shen MD Assessment and Plan Assessment: (1) Carotid artery, internal, occlusion (2) CVA (cerebral vascular accident) Status: Acute Plan Ms. Rockwell seen and evaluated for carotid artery occlusion Recent finding post resolved TIA w/u Pt w/o deficits at present time Plan Reviewed CTA/U/S No surgical intervention at this time as bilateral internal carotid arteries are occluded Recommend CV risk factor modification (anticoagulation/statin therapy) Sidra BUENO [facility] [phone] Problem Qualifiers (1) Carotid artery, internal, occlusion: Qualified Codes: I65.23 - Occlusion and stenosis of bilateral carotid arteries Sidra Christianson May 18, 2017 13:29
--- NOTE | 2017-05-18 13:52 | EKG ---
Date Performed: 05/17/2017 Time Performed: 19:25:49 PTAGE: 71 years EKG: SINUS BRADYCARDIA BORDERLINE ECG NO PREVIOUS TRACING DOCTOR: Andre Fritz Interpretating Date/Time 05/18/2017 13:48:38
[2017-05-18] MEDS: SODIUM CHLOR 0.9% 1000 ML INJ 1,000 ML IV SCH ×2 (13:53→21:00)
--- NOTE | 2017-05-18 18:11 | HHI.PR ---
Review/Management Daily Summary 05/18 doing well no residual sx or deficits bila ica occlusion and left trifurcation thrombus/embolism asa, statin home soon, pending echo, no afib noted Subjective Subjective Comments No acute events reported No headache No chest pain No dyspnea Active Medications Current Medications Medications (Trade) Dose Ordered Sig/Natacha Route Start Time Stop Time Status Last Admin Sodium Chloride 1,000 ml @ 75 mls/hr [id number] IV 05/17/17 11:02 05/18/17 13:53 (Tylenol) 650 mg Q4H PRN PO 05/17/17 11:15 (Tylenol) 650 mg Q6H PRN PO 05/17/17 11:15 (Narcan Inj) 0.4 mg UNSCH PRN IV PUSH 05/17/17 11:15 (Diamond-Colace) 1 tab BID PO 05/17/17 21:00 05/17/17 20:10 (NS Flush) 2 ml BID IV FLUSH 05/17/17 21:00 05/18/17 08:34 (NS Flush) 2 ml UNSCH PRN IV FLUSH 05/17/17 11:30 (Vasotec Inj) 1.25 mg Q4H PRN IV 05/17/17 11:30 (Aspirin Chew) 81 mg DAILY PO 05/18/17 09:00 05/18/17 08:33 (NovoLOG SUPPLEMENTAL SCALE) 1 ACHS SQ 05/17/17 12:00 (D50w (Vial) Inj) 50 ml UNSCH PRN IV PUSH 05/17/17 11:30 (Glucagon Inj) 1 mg UNSCH PRN OTHER 05/17/17 11:30 (Folate) 1 mg DAILY PO 05/18/17 09:00 05/23/17 08:59 05/18/17 08:34 (Vitamin B1) 100 mg DAILY PO 05/18/17 09:00 05/18/17 08:34 (Theragran M Tab) 1 tab DAILY PO 05/18/17 09:00 05/23/17 08:59 05/18/17 08:34 (Ativan Inj) 1 mg Q4H PRN IV PUSH 05/17/17 11:45 (Lipitor) 10 mg HS PO 05/18/17 21:00 Allergies Allergies Coded Allergies No Known Allergies (Unverified05/17/17) Exam I&O / VS Vital Signs Date Time Temp Pulse Resp B/P (MAP) Pulse Ox O2 Delivery O2 Flow Rate FiO2 05/18/17 17:15 98.1 60 16 101/57 (72) 98 05/18/17 11:16 98.2 71 16 125/79 (94) 97 05/18/17 08:12 97.9 62 16 190/88 (122) 94 05/18/17 07:30 100 Nasal Cannula 2.00 05/18/17 04:11 98.2 64 18 120/56 (77) 100 05/18/17 04:02 70 05/18/17 01:27 98 Nasal Cannula 1.00 05/17/17 23:11 98.2 66 17 119/65 (83) 99 05/17/17 23:10 51 05/17/17 20:23 97.8 62 17 128/69 (88) 100 05/17/17 20:00 57 Objective Radiology Results Last [address] 05/17/17 0940 Signed Impressions: Service Date/Time: Wednesday, May 17, 2017 09:54 - CONCLUSION: No acute intracranial abnormality is identified. There is an old lacune in the left basal ganglia. Chan Villegas MD Chest X-Ray 05/17/17 0940 Signed Impressions: Service Date/Time: Wednesday, May 17, 2017 09:42 - CONCLUSION: No acute cardiopulmonary abnormality is identified. Chan Villegas MD Neck CTA 05/17/17 0000 Signed Impressions: Service Date/Time: Wednesday, May 17, 2017 20:20 - CONCLUSION: 1. 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 2. The vertebral arteries are patent. The left vertebral artery is small in size. Andrea Shen MD Head Magnetic Resonance Angiography 05/17/17 0000 Signed Impressions: Service Date/Time: Wednesday, May 17, 2017 13:17 - CONCLUSION: 1. 1. MRA characteristic of an embolic event to the left trifurcation territory as above. 2. Distal basilar also becomes quite diminutive with marked tapering proximal to the confluence with the posterior cerebral arteries. Both posterior cerebral arteries have a prominent feeder from the posterior communicating arteries off the anterior circulation, however. May 17, 2017 at 14:39 Board Certified Radiologist. This report was verified electronically. Carotid Artery Ultrasound 05/17/17 0000 Signed Impressions: Service Date/Time: Wednesday, May 17, 2017 17:36 - CONCLUSION: 1. The common carotid arteries and external carotid arteries are patent bilaterally. No blood flow could be obtained in either internal carotid artery consistent with occlusions. 2. No flow could be obtained in the left vertebral artery. 3. The right vertebral artery demonstrate antegrade flow with elevated velocity. Further evaluation with CT angiography is recommended. Andrea Shen MD Brain MRI 05/17/17 0000 Signed Impressions: Service Date/Time: Wednesday, May 17, 2017 13:17 - CONCLUSION: 1. No acute hemorrhage or mass effect. 2. Mild atrophy and chronic small vessel ischemic changes. Andrea Shen MD Micro and Labs Laboratory Tests Test 05/18/17 05:55 White Blood Count 4.8 Red Blood Count 4.42 Hemoglobin 13.9 Hematocrit 41.6 Mean Corpuscular Volume 94.0 Mean Corpuscular Hemoglobin 31.5 Mean Corpuscular Hemoglobin Concent 33.5 Red Cell Distribution Width 15.2 Platelet Count 208 Mean Platelet Volume 7.6 Neutrophils (%) (Auto) 49.5 Lymphocytes (%) (Auto) 36.6 Monocytes (%) (Auto) 10.3 Eosinophils (%) (Auto) 2.1 Basophils (%) (Auto) 1.5 Neutrophils # (Auto) 2.4 Lymphocytes # (Auto) 1.7 Monocytes # (Auto) 0.5 Eosinophils # (Auto) 0.1 Basophils # (Auto) 0.1 CBC Comment DIFF FINAL Differential Comment Blood Urea Nitrogen 7 Creatinine 0.45 Random Glucose 81 Total Protein 6.2 Albumin 3.0 Calcium Level 8.2 Alkaline Phosphatase 77 Aspartate Amino Transf (AST/SGOT) 15 Alanine Aminotransferase (ALT/SGPT) 13 Total Bilirubin 0.4 Sodium Level 142 Potassium Level 3.6 Chloride Level 108 Carbon Dioxide Level 27.3 Anion Gap 7 Estimat Glomerular Filtration Rate 137 Triglycerides Level 74 Cholesterol Level 170 LDL Cholesterol 73 HDL Cholesterol 82.3 Cholesterol/HDL Ratio 2.06 Scooter Mock MD May 18, 2017 18:11
[2017-05-18] MEDS: ATORVASTATIN 10 MG TAB PO SCH (20:59)
[2017-05-19] VITALS (10 sets, daily range): BP systolic 65–114; BP diastolic 37–60; PULSE 51–65; RESP 16–31; TEMP 97.6–98.6; O2SAT 95–97
[2017-05-19] MEDS: INSULIN ASPART SUPPLEMENTAL SCALE SQ SCH ×4 (08:00→20:33)
[2017-05-19] MEDS: SODIUM CHLORIDE 0.9% FLUSH 10 ML FLUSH IV FLUSH SCH ×2 (09:00→20:11)
[2017-05-19] MEDS: THIAMINE HCL 100 MG TAB PO SCH (09:44)
[2017-05-19] MEDS: FOLIC ACID 1 MG TAB PO SCH (09:44)
[2017-05-19] MEDS: MULTIVITAMINS/MINERALS THERAPEUTIC TAB PO SCH (09:44)
[2017-05-19] MEDS: DOCUSATE SODIUM 50 MG/SENNA 8.6 MG TAB PO SCH ×2 (09:44→20:11)
[2017-05-19] MEDS: ASPIRIN 81 MG CHEW TAB PO SCH (09:45)
[2017-05-19] MEDS ORDERED: SODIUM CHLOR 0.9% 1000 ML INJ 1,000 ML IV SCH (10:00)
[2017-05-19] MEDS ORDERED: SODIUM CHLOR 0.9% 1000 ML INJ 1,000 ML IV ONE (10:45)
--- NOTE | 2017-05-19 10:56 | HHI.PR ---
Subjective Remarks The pt denied any acute complaints. She was confused. Seen alongside with vascular surgery. The pt denied any chest pain or shortness of breath. Objective Vitals Vital Signs Date Time Temp Pulse Resp B/P (MAP) Pulse Ox O2 Delivery O2 Flow Rate FiO2 05/19/17 08:45 97.6 55 16 90/54 (66) 95 05/19/17 08:09 54 05/19/17 03:57 98.1 56 16 79/49 (59) 96 05/19/17 00:08 98.2 65 18 65/37 (46) 95 05/18/17 20:25 96 05/18/17 20:05 98.2 64 18 70/38 (49) 96 05/18/17 17:15 98.1 60 16 101/57 (72) 98 05/18/17 11:16 98.2 71 16 125/79 (94) 97 I/O 05/18/17 05/18/17 05/18/17 05/19/17 05/19/17 05/19/17 07:00 15:00 23:00 07:00 15:00 23:00 Intake Total 265 ml 200 ml Balance 265 ml 200 ml Intake Oral 200 ml IV Total 265 ml # Voids 2 Result Diagram: 05/18/17 0555 05/18/17 0555 Imaging Last Impressions Head CT 05/17/17 0940 Signed Impressions: Service Date/Time: Wednesday, May 17, 2017 09:54 - CONCLUSION: No acute intracranial abnormality is identified. There is an old lacune in the left basal ganglia. Chan Villegas MD Chest X-Ray 05/17/17 0940 Signed Impressions: Service Date/Time: Wednesday, May 17, 2017 09:42 - CONCLUSION: No acute cardiopulmonary abnormality is identified. Chan Villegas MD Neck CTA 05/17/17 0000 Signed Impressions: Service Date/Time: Wednesday, May 17, 2017 20:20 - CONCLUSION: 1. 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 2. The vertebral arteries are patent. The left vertebral artery is small in size. Andrea Shen MD Head Magnetic Resonance Angiography 05/17/17 0000 Signed Impressions: Service Date/Time: Wednesday, May 17, 2017 13:17 - CONCLUSION: 1. 1. MRA characteristic of an embolic event to the left trifurcation territory as above. 2. Distal basilar also becomes quite diminutive with marked tapering proximal to the confluence with the posterior cerebral arteries. Both posterior cerebral arteries have a prominent feeder from the posterior communicating arteries off the anterior circulation, however. May 17, 2017 at 14:39 Board Certified Radiologist. This report was verified electronically. Carotid Artery Ultrasound 05/17/17 0000 Signed Impressions: Service Date/Time: Wednesday, May 17, 2017 17:36 - CONCLUSION: 1. The common carotid arteries and external carotid arteries are patent bilaterally. No blood flow could be obtained in either internal carotid artery consistent with occlusions. 2. No flow could be obtained in the left vertebral artery. 3. The right vertebral artery demonstrate antegrade flow with elevated velocity. Further evaluation with CT angiography is recommended. Andrea Shen MD Brain MRI 05/17/17 0000 Signed Impressions: Service Date/Time: Wednesday, May 17, 2017 13:17 - CONCLUSION: 1. No acute hemorrhage or mass effect. 2. Mild atrophy and chronic small vessel ischemic changes. Andrea Shen MD Objective Remarks GENERAL: Well-developed well-nourished. In no acute distress. SKIN: Warm and dry. No lesions noted. HEENT: Normocephalic. Pupils equal and round. Mucous membranes pink and moist. Bilateral carotid bruits seem to be present on auscultation. CARDIOVASCULAR: Bradycardic. No murmur appreciated. RESPIRATORY: Scattered rhonchi. GASTROINTESTINAL: Abdomen soft, non-tender, nondistended. Bowel sounds x4. MUSCULOSKELETAL: No obvious deformities. No clubbing or cyanosis. No edema. NEUROLOGICAL: Awake, confused. Strength 5/5 in all extremities. Normal speech. PSYCHIATRIC: Calm. Medications and IVs Current Medications Medications (Trade) Dose Ordered Sig/Natacha Route Start Time Stop Time Status Last Admin (Tylenol) 650 mg Q4H PRN PO 05/17/17 11:15 (Tylenol) 650 mg Q6H PRN PO 05/17/17 11:15 (Narcan Inj) 0.4 mg UNSCH PRN IV PUSH 05/17/17 11:15 (Diamond-Colace) 1 tab BID PO 05/17/17 21:00 05/19/17 09:44 (NS Flush) 2 ml BID IV FLUSH 05/17/17 21:00 05/18/17 20:59 (NS Flush) 2 ml UNSCH PRN IV FLUSH 05/17/17 11:30 (Vasotec Inj) 1.25 mg Q4H PRN IV 05/17/17 11:30 (Aspirin Chew) 81 mg DAILY PO 05/18/17 09:00 05/19/17 09:45 (NovoLOG SUPPLEMENTAL SCALE) 1 ACHS SQ 05/17/17 12:00 (D50w (Vial) Inj) 50 ml UNSCH PRN IV PUSH 05/17/17 11:30 (Glucagon Inj) 1 mg UNSCH PRN OTHER 05/17/17 11:30 (Folate) 1 mg DAILY PO 05/18/17 09:00 05/23/17 08:59 05/19/17 09:44 (Vitamin B1) 100 mg DAILY PO 05/18/17 09:00 05/19/17 09:44 (Theragran M Tab) 1 tab DAILY PO 05/18/17 09:00 05/23/17 08:59 05/19/17 09:44 (Ativan Inj) 1 mg Q4H PRN IV PUSH 05/17/17 11:45 (Lipitor) 10 mg HS PO 05/18/17 21:00 05/18/17 20:59 Sodium Chloride 1,000 ml @ 999 mls/hr BOLUS ONCE IV 05/19/17 10:45 05/19/17 11:45 Dextrose/Sodium Chloride 1,000 ml @ 100 mls/hr Q10H IV 05/19/17 10:45 A/P Assessment and Plan Acute CVA Patient with acute onset of right-sided neurologic symptoms which are resolved. Long history of tobacco abuse. Reviewed: Head CT with no acute intracranial abnormality, old left basilar lacune. EKG showed sinus bradycardia, rate 55. Brain MRI showed no acute hemorrhage or mass effect; chronic changes. Brain MRA showed embolic event to the left trifurcation territory. Carotid ultrasound showed bilateral internal carotid artery occlusions and no flow in the left vertebral. Neck CTA showed bilateral occlusion of the internal carotid arteries and patent vertebral arteries. Vascular surgery consult appreciated. - Monitor on telemetry. - Check echocardiogram. - Consulted neurology, D/W Dr. Mock, and agrees with aspirin, recommends following up echocardiogram to rule out other embolic source and aggressive control of LDL, he will follow-up. - PT/OT/ST, soft diet per ST. - IVF. - repeat brain MRI per neurology. Hypotension Unsure of etiology. The pt is asymptomatic. - bolus 1 L and start fluids at 100 ml/hr. - check CMP, CBC, CXR, UA, BC x 2, lactic acid level, TSH, cortisol level, echo. - transfer to ICU and monitor. Consult abrasive band winder if no improvement. Acute metabolic encephalopathy Possibly s/t CVA. The pt drinks regularly so may be exacerbated by withdrawal. Also hypotensive at this time. - treatment as above. - neuro checks. - treat withdrawal as needed. Carotid occlusions Imaging as above. Discussed with vascular surgery, Dr. Cueva, recommends medical management. -Vascular surgery follow up as an outpt. -Continue aspirin and statin as above. Alcohol abuse No sign of withdrawals. - Thiamine, folate, multivitamins. Ativan as needed. - cessation instruction. PPx: SCDs Discharge Planning Transfer to ICU Andrea Nino DO May 19, 2017 10:56
[2017-05-19 11:40] LABS: ALT (GPT) 17 U/L (10-53); ANION GAP 5 MEQ/L (5-15); AST (GOT) 26 U/L (15-37); BICARBONATE 29.8 MEQ/L (21.0-32.0); BLOOD UREA NITROGEN 9 MG/DL (7-18); CHLORIDE 105 MEQ/L (98-107); GLOMERULAR FILTRATION RATE 114 ML/MIN (>89); POTASSIUM 3.8 MEQ/L (3.5-5.1); SODIUM (NA) 140 MEQ/L (136-145)
[2017-05-19 11:43] LABS: ALKALINE PHOSPHATASE 85 U/L (45-117); TOTAL BILIRUBIN ADULT 0.4 MG/DL (0.2-1.0)
--- NOTE | 2017-05-19 11:52 | RADRPT ---
EXAM DATE/TIME: 05/19/2017 10:57 [facility] COMPARISON: CHEST SINGLE AP, May 17, 2017, 9:42. INDICATIONS : Pneumonia. Patient complains of chest pain. MEDICAL HISTORY : Cardiovascular disease. SURGICAL HISTORY : None. ENCOUNTER: Initial ACUITY: 3 days PAIN SCORE: 0/10 LOCATION: Bilateral chest FINDINGS: A single view of the chest demonstrates the lungs to be symmetrically aerated without evidence of mas s, infiltrate or effusion. The cardiomediastinal contours are unremarkable. Osseous structures are intact. CONCLUSION: No acute disease. Chan Brasher MD on May 19, 2017 at 11:50 Board Certified Radiologist. This report was verified electronically.
--- NOTE | 2017-05-19 12:53 | ECHRPT ---
Indication: CVA/TIA CONCLUSIONS Mildly dilated left ventricle. The left ventricular systolic function is low normal with an estimated ejection fraction in the rang e of 50- 55%. Normal left ventricular size. Mild mitral valve regurgitation. No aortic valve regurgitation. No aortic valve stenosis. There is mild tricuspid valve regurgitation. The estimated pulmonary arterial pressure is 26.8 mmHg. BP: / HR: Rhythm: MEASUREMENTS (Male / Female) Normal Values Technical Quality:Fair 2D ECHO LV Diastolic Diameter PLAX 3.8 cm 4.2 - 5.9 / 3.9 - 5.3 cm LV Systolic Diameter PLAX 3.1 cm IVS Diastolic Thickness 1.3 cm 0.6 - 1.0 / 0.6 - 0.9 cm LVPW Diastolic Thickness 0.9 cm 0.6 - 1.0 / 0.6 - 0.9 cm LV Relative Wall Thickness 0.6 RV Internal Dim ED PLAX 2.4 cm M-MODE Aortic Root Diameter MM 2.8 cm LA Systolic Diameter MM 3.2 cm LA Ao Ratio MM 1.1 AV Cusp Separation MM 1.9 cm DOPPLER Mitral E Point Velocity 62.2 cm/s Mitral A Point Velocity 64.7 cm/s Mitral E to A Ratio 1.0 LV E' Lateral Velocity 8.6 cm/s Mitral E to LV E' Lateral Ratio 7.2 LV E' Septal Velocity 9.5 cm/s Mitral E to LV E' Septal Ratio 6.6 TR Peak Velocity 205.0 cm/s TR Peak Gradient 16.8 mmHg Right Atrial Pressure 10.0 mmHg Pulmonary Artery Systolic Pressu 26.8 mmHg Right Ventricular Systolic Press 26.8 mmHg FINDINGS LEFT VENTRICLE Mildly dilated left ventricle. The left ventricular systolic function is low normal with an estimated ejection fraction in the rang e of 50- 55%. Normal left ventricular size. RIGHT VENTRICLE Normal right ventricular size and systolic function. LEFT ATRIUM The left atrial size is normal. RIGHT ATRIUM The right atrial size is normal. ATRIAL SEPTUM Normal atrial septal thickness without atrial level shunting by limited color doppler interrogation. AORTA The aortic root and proximal ascending aorta are normal in size on limited imaging. MITRAL VALVE Structurally normal mitral valve. Mild mitral valve regurgitation. AORTIC VALVE Trileaflet aortic valve. No aortic valve regurgitation. No aortic valve stenosis. TRICUSPID VALVE Structurally normal tricuspid valve. There is mild tricuspid valve regurgitation. The estimated pulmonary arterial pressure is 26.8 mmHg. PULMONARY VALVE No pulmonary valve regurgitation or stenosis. VESSELS The inferior vena cava is normal in size. PERICARDIUM No pericardial effusion. Cecil Bergman MD, FACC (Electronically Signed) Final Date:19 May 2017 12:52
[2017-05-19] MEDS: DEXT 5%-NACL 0.45% 1000 ML INJ 1,000 ML IV SCH ×2 (13:15→20:11)
[2017-05-19 13:51] LABS: AUTOMATED NEUTROPHIL # 3.3 TH/MM3 (1.8-7.7); BASOPHIL % 0.7 % (0.0-2.0); EOSINOPHIL # 0.1 TH/MM3 (0-0.4); EOSINOPHIL % 1.5 % (0.0-4.0); HEMO FLAGS DIFF FINAL; LYMPH % 30.7 % (9.0-44.0); LYMPHOCYTE # 1.7 TH/MM3 (1.0-4.8); MEAN CELL VOLUME 96.3 FL (80.0-100.0); MEAN CORPUSCULAR HEMOGLOBIN 31.4 PG (27.0-34.0); MEAN CORPUSCULAR HGB CONC 32.6 % (32.0-36.0); MONO % 8.7 % (0.0-8.0); NEUT % 58.4 % (16.0-70.0); PLATELET COUNT 216 TH/MM3 (150-450); RED BLOOD COUNT 4.67 MIL/MM3 (4.00-5.30); RED CELL DISTRIBUTION WIDTH 15.5 % (11.6-17.2); WHITE BLOOD COUNT 5.6 TH/MM3 (4.0-11.0)
--- NOTE | 2017-05-19 15:12 | RADRPT ---
EXAM DATE/TIME: 05/19/2017 14:39 [facility] COMPARISON: MRA BRAIN W/O CONTRAST, May 17, 2017, 13:17. INDICATIONS : CVA. MEDICAL HISTORY : Hypotension. SURGICAL HISTORY : None. ENCOUNTER: Initial ACUITY: 2 day PAIN SCORE: 0/10 LOCATION: head TECHNIQUE: Multiplanar, multisequence MRI of the brain was performed without contrast. FINDINGS: The examination demonstrates a sizable area of abnormal diffusion restricted signal involving the lef t MCA distribution. Findings would be consistent with acute left MCA infarct. The ventricles are normal in size and configuration. No acute intracranial hemorrhage is present. No mass lesion is identified. No significant extra-axial fluid collections are seen. The sulci and gyri are otherwise intact. The inversion recovery images demonstrate some scattered areas of increased T2 signal in the white ma tter most consistent with mild microvascular ischemic demyelinative change. The appearance of the posterior fossa is unremarkable. The visualized portion of sinus and orbit are intact. CONCLUSION: 1. Evolving left MCA infarct. No significant mass effect. No hemorrhage. Cornelio Johnston MD on May 19, 2017 at 15:09 Board Certified Radiologist. This report was verified electronically.
[2017-05-19] MEDS: ATORVASTATIN 10 MG TAB PO SCH (20:10)
[2017-05-20] VITALS (12 sets, daily range): BP systolic 100–166; BP diastolic 57–96; PULSE 46–63; RESP 20–27; TEMP 97.8–98.6; O2SAT 93–98
[2017-05-20] MEDS: DEXT 5%-NACL 0.45% 1000 ML INJ 1,000 ML IV SCH ×2 (02:00→10:39)
[2017-05-20] MEDS: INSULIN ASPART SUPPLEMENTAL SCALE SQ SCH ×4 (08:00→20:41)
[2017-05-20] MEDS: SODIUM CHLORIDE 0.9% FLUSH 10 ML FLUSH IV FLUSH SCH ×2 (08:38→20:41)
[2017-05-20] MEDS: THIAMINE HCL 100 MG TAB PO SCH (08:59)
[2017-05-20] MEDS: MULTIVITAMINS/MINERALS THERAPEUTIC TAB PO SCH (09:00)
[2017-05-20] MEDS: DOCUSATE SODIUM 50 MG/SENNA 8.6 MG TAB PO SCH ×2 (09:00→20:39)
[2017-05-20] MEDS: FOLIC ACID 1 MG TAB PO SCH (09:00)
[2017-05-20] MEDS: ASPIRIN 81 MG CHEW TAB PO SCH (09:00)
--- NOTE | 2017-05-20 09:11 | HHI.PR ---
Review/Management Daily Summary 05/18 doing well no residual sx or deficits bila ica occlusion and left trifurcation thrombus/embolism asa, statin home soon, pending echo, no afib noted 05/[address] Nino and RN yesterday pt developed aphasia and today much improved, minor difficulty expressing herself mri reviewed, acute left mca infarct will discuss with dr Nino and possibly switch to heparin/coumadin for 3-6 months Subjective Subjective Comments neuro decline yesterday Active Medications Current Medications Medications (Trade) Dose Ordered Sig/Natacha Route Start Time Stop Time Status Last Admin (Tylenol) 650 mg Q4H PRN PO 05/17/17 11:15 (Tylenol) 650 mg Q6H PRN PO 05/17/17 11:15 (Narcan Inj) 0.4 mg UNSCH PRN IV PUSH 05/17/17 11:15 (Diamond-Colace) 1 tab BID PO 05/17/17 21:00 05/20/17 09:00 (NS Flush) 2 ml BID IV FLUSH 05/17/17 21:00 05/20/17 08:38 (NS Flush) 2 ml UNSCH PRN IV FLUSH 05/17/17 11:30 (Vasotec Inj) 1.25 mg Q4H PRN IV 05/17/17 11:30 (Aspirin Chew) 81 mg DAILY PO 05/18/17 09:00 05/20/17 09:00 (NovoLOG SUPPLEMENTAL SCALE) 1 ACHS SQ 05/17/17 12:00 (D50w (Vial) Inj) 50 ml UNSCH PRN IV PUSH 05/17/17 11:30 (Glucagon Inj) 1 mg UNSCH PRN OTHER 05/17/17 11:30 (Folate) 1 mg DAILY PO 05/18/17 09:00 05/23/17 08:59 05/20/17 09:00 (Vitamin B1) 100 mg DAILY PO 05/18/17 09:00 05/20/17 08:59 (Theragran M Tab) 1 tab DAILY PO 05/18/17 09:00 05/23/17 08:59 05/20/17 09:00 (Ativan Inj) 1 mg Q4H PRN IV PUSH 05/17/17 11:45 (Lipitor) 10 mg HS PO 05/18/17 21:00 05/19/17 20:10 Dextrose/Sodium Chloride 1,000 ml @ 100 mls/hr Q10H IV 05/19/17 10:45 05/20/17 02:00 Allergies Allergies Coded Allergies No Known Allergies (Unverified05/17/17) Exam I&O / VS Vital Signs Date Time Temp Pulse Resp B/P (MAP) Pulse Ox O2 Delivery O2 Flow Rate FiO2 05/20/17 06:00 47 05/20/17 04:00 98.2 46 20 103/57 (72) 97 05/20/17 04:00 46 05/20/17 02:00 48 05/20/17 00:00 52 05/20/17 00:00 97.8 52 27 100/57 (71) 95 05/19/17 22:00 54 05/19/17 20:00 98.0 58 18 114/57 (76) 97 05/19/17 20:00 58 05/19/17 19:00 98 Room Air 05/19/17 18:00 54 05/19/17 16:00 98.5 54 17 105/60 (75) 97 05/19/17 16:00 54 05/19/17 14:00 51 05/19/17 12:00 98.6 54 31 98/59 (72) 96 Objective Radiology Results Last 48 hours Impressions Chest X-Ray 05/19/17 0000 Signed Impressions: Service Date/Time: Friday, May 19, 2017 10:57 - CONCLUSION: No acute disease. Chan Brasher MD Brain MRI 05/19/17 0000 Signed Impressions: Service Date/Time: Friday, May 19, 2017 14:39 - CONCLUSION: 1. Evolving left MCA infarct. No significant mass effect. No hemorrhage. Cornelio Johnston MD Micro and Labs Laboratory Tests Test 05/19/17 11:10 05/19/17 13:20 05/19/17 17:01 05/19/17 23:01 Blood Urea Nitrogen 9 Creatinine 0.53 Random Glucose 107 Total Protein 6.6 Albumin 3.3 Calcium Level 8.8 Alkaline Phosphatase 85 Aspartate Amino Transf (AST/SGOT) 26 Alanine Aminotransferase (ALT/SGPT) 17 Total Bilirubin 0.4 Sodium Level 140 Potassium Level 3.8 Chloride Level 105 Carbon Dioxide Level 29.8 Anion Gap 5 Estimat Glomerular Filtration Rate 114 Lactic Acid Level 1.1 Troponin I 0.28 0.14 0.19 Thyroid Stimulating Hormone 3rd Gen 2.090 Random Cortisol 17.0 White Blood Count 5.6 Red Blood Count 4.67 Hemoglobin 14.7 Hematocrit 45.0 Mean Corpuscular Volume 96.3 Mean Corpuscular Hemoglobin 31.4 Mean Corpuscular Hemoglobin Concent 32.6 Red Cell Distribution Width 15.5 Platelet Count 216 Mean Platelet Volume 7.7 Neutrophils (%) (Auto) 58.4 Lymphocytes (%) (Auto) 30.7 Monocytes (%) (Auto) 8.7 Eosinophils (%) (Auto) 1.5 Basophils (%) (Auto) 0.7 Neutrophils # (Auto) 3.3 Lymphocytes # (Auto) 1.7 Monocytes # (Auto) 0.5 Eosinophils # (Auto) 0.1 Basophils # (Auto) 0.0 CBC Comment DIFF FINAL Differential Comment Date/Time Source Procedure Growth Status 05/19/17 13:30 Blood Peripheral Aerobic Blood Culture Pending Received 05/19/17 13:30 Blood Peripheral Anaerobic Blood Culture Pending Received Scooter Mock MD May 20, 2017 09:11
--- NOTE | 2017-05-20 12:07 | HHI.PR ---
Subjective Remarks The pt had no acute complaints. She said she was breathing well. She was still confused. Her family arrived and their questions were answered. Objective Vitals Vital Signs Date Time Temp Pulse Resp B/P (MAP) Pulse Ox O2 Delivery O2 Flow Rate FiO2 05/20/17 10:00 48 05/20/17 08:00 98.1 48 22 162/74 (103) 98 05/20/17 07:00 98 Nasal Cannula 2.00 05/20/17 06:00 47 05/20/17 04:00 98.2 46 20 103/57 (72) 97 05/20/17 04:00 46 05/20/17 02:00 48 05/20/17 00:00 52 05/20/17 00:00 97.8 52 27 100/57 (71) 95 05/19/17 22:00 54 05/19/17 20:00 98.0 58 18 114/57 (76) 97 05/19/17 20:00 58 05/19/17 19:00 98 Room Air 05/19/17 18:00 54 05/19/17 16:00 98.5 54 17 105/60 (75) 97 05/19/17 16:00 54 05/19/17 14:00 51 05/19/17 12:00 98.6 54 31 98/59 (72) 96 I/O 05/19/17 05/19/17 05/19/17 05/20/17 05/20/17 05/20/17 07:00 15:00 23:00 07:00 15:00 23:00 Intake Total 200 ml 2000 ml 1035 ml 1054 ml 1000 ml Balance 200 ml 2000 ml 1035 ml 1054 ml 1000 ml Intake Oral 200 ml 0 ml 50 ml IV Total 2000 ml 1035 ml 1004 ml 1000 ml # Voids 2 4 # Bowel Movements 0 0 Result Diagram: 05/19/17 1320 05/19/17 1110 Imaging Last Impressions Chest X-Ray 05/19/17 0000 Signed Impressions: Service Date/Time: Friday, May 19, 2017 10:57 - CONCLUSION: No acute disease. Chan Brasher MD Brain MRI 05/19/17 0000 Signed Impressions: Service Date/Time: Friday, May 19, 2017 14:39 - CONCLUSION: 1. Evolving left MCA infarct. No significant mass effect. No hemorrhage. Cornelio Johnston MD Head CT 05/17/17 0940 Signed Impressions: Service Date/Time: Wednesday, May 17, 2017 09:54 - CONCLUSION: No acute intracranial abnormality is identified. There is an old lacune in the left basal ganglia. Chan Villegas MD Neck CTA 05/17/17 0000 Signed Impressions: Service Date/Time: Wednesday, May 17, 2017 20:20 - CONCLUSION: 1. 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 2. The vertebral arteries are patent. The left vertebral artery is small in size. Andrea Shen MD Head Magnetic Resonance Angiography 05/17/17 0000 Signed Impressions: Service Date/Time: Wednesday, May 17, 2017 13:17 - CONCLUSION: 1. 1. MRA characteristic of an embolic event to the left trifurcation territory as above. 2. Distal basilar also becomes quite diminutive with marked tapering proximal to the confluence with the posterior cerebral arteries. Both posterior cerebral arteries have a prominent feeder from the posterior communicating arteries off the anterior circulation, however. May 17, 2017 at 14:39 Board Certified Radiologist. This report was verified electronically. Carotid Artery Ultrasound 05/17/17 0000 Signed Impressions: Service Date/Time: Wednesday, May 17, 2017 17:36 - CONCLUSION: 1. The common carotid arteries and external carotid arteries are patent bilaterally. No blood flow could be obtained in either internal carotid artery consistent with occlusions. 2. No flow could be obtained in the left vertebral artery. 3. The right vertebral artery demonstrate antegrade flow with elevated velocity. Further evaluation with CT angiography is recommended. Andrea Shen MD Objective Remarks GENERAL: Well-developed well-nourished. In no acute distress. SKIN: Warm and dry. No lesions noted. HEENT: Normocephalic. Pupils equal and round. Mucous membranes pink and moist. CARDIOVASCULAR: Bradycardic. No murmur appreciated. RESPIRATORY: CTAB. No W/R/R. GASTROINTESTINAL: Abdomen soft, non-tender, nondistended. Bowel sounds x4. MUSCULOSKELETAL: No obvious deformities. No clubbing or cyanosis. No edema. NEUROLOGICAL: Awake, confused. Strength 5/5 in all extremities. Normal speech. PSYCHIATRIC: Mood and affect appropriate. Medications and IVs Current Medications Medications (Trade) Dose Ordered Sig/Natacha Route Start Time Stop Time Status Last Admin (Tylenol) 650 mg Q4H PRN PO 05/17/17 11:15 (Tylenol) 650 mg Q6H PRN PO 05/17/17 11:15 (Narcan Inj) 0.4 mg UNSCH PRN IV PUSH 05/17/17 11:15 (Diamond-Colace) 1 tab BID PO 05/17/17 21:00 05/20/17 09:00 (NS Flush) 2 ml BID IV FLUSH 05/17/17 21:00 05/20/17 08:38 (NS Flush) 2 ml UNSCH PRN IV FLUSH 05/17/17 11:30 (Vasotec Inj) 1.25 mg Q4H PRN IV 05/17/17 11:30 (Aspirin Chew) 81 mg DAILY PO 05/18/17 09:00 05/20/17 09:00 (NovoLOG SUPPLEMENTAL SCALE) 1 ACHS SQ 05/17/17 12:00 (D50w (Vial) Inj) 50 ml UNSCH PRN IV PUSH 05/17/17 11:30 (Glucagon Inj) 1 mg UNSCH PRN OTHER 05/17/17 11:30 (Folate) 1 mg DAILY PO 05/18/17 09:00 05/23/17 08:59 05/20/17 09:00 (Vitamin B1) 100 mg DAILY PO 05/18/17 09:00 05/20/17 08:59 (Theragran M Tab) 1 tab DAILY PO 05/18/17 09:00 05/23/17 08:59 05/20/17 09:00 (Ativan Inj) 1 mg Q4H PRN IV PUSH 05/17/17 11:45 (Lipitor) 10 mg HS PO 05/18/17 21:00 05/19/17 20:10 Dextrose/Sodium Chloride 1,000 ml @ 100 mls/hr Q10H IV 05/19/17 10:45 05/20/17 10:39 A/P Assessment and Plan Acute CVA Patient with acute onset of right-sided neurologic symptoms which are resolved. Long history of tobacco abuse. Reviewed: Head CT with no acute intracranial abnormality, old left basilar lacune. EKG showed sinus bradycardia, rate 55. Brain MRI showed no acute hemorrhage or mass effect; chronic changes. Brain MRA showed embolic event to the left trifurcation territory. Carotid ultrasound showed bilateral internal carotid artery occlusions and no flow in the left vertebral. Neck CTA showed bilateral occlusion of the internal carotid arteries and patent vertebral arteries. Vascular surgery consult appreciated. Echo with EF 50-55%. Repeat MRI showed evolving left MCA infarct; No significant mass effect; No hemorrhage. Neurology was notified. - Monitor on telemetry. - Consulted neurology. Possibly switch ASA to heparin and Coumadin. Will defer decision to neurology. - PT/OT/ST, soft diet per ST. - s/p IVF. - increase activity. Hypotension Likely s/t CVA. The pt is asymptomatic. Stabilized with fluids. - d/c fluids and monitor. Acute metabolic encephalopathy S/t CVA. The pt drinks regularly so may be exacerbated by withdrawal. Also hypotensive at this time. - treatment as above. - neuro checks. - treat withdrawal as needed. Elevated trops Trops peaked at 0.28. Likely demand ischemia from hypotensive episodes. EKGs with sinus bradycardia. No chest pain or shortness of breath. Echo with EF 50-55 %. - telemetry. - continue ASA. Carotid occlusions Imaging as above. Discussed with vascular surgery, Dr. Cueva, recommends medical management. -Vascular surgery follow up as an outpt. -Continue aspirin and statin as above. Alcohol abuse No sign of withdrawals. - Thiamine, folate, multivitamins. Ativan as needed. - cessation instruction. PPx: SCDs Discharge Planning Transfer to floor if blood pressure remains stable Andrea Nino DO May 20, 2017 12:07
--- NOTE | 2017-05-20 14:59 | EKG ---
Date Performed: 05/19/2017 Time Performed: 22:00:25 PTAGE: 71 years EKG: SINUS BRADYCARDIA BORDERLINE ECG PREVIOUS TRACING : 05/19/2017 15.31 Compared to prior tracing no significant change DOCTOR: Ricky Miller Interpretating Date/Time 05/20/2017 14:57:42
--- NOTE | 2017-05-20 15:16 | EKG ---
Date Performed: 05/19/2017 Time Performed: 15:31:41 PTAGE: 71 years EKG: SINUS BRADYCARDIA PREVIOUS TRACING : 05/19/2017 11.15 Compared to prior tracing no significant change DOCTOR: Ricky Miller Interpretating Date/Time 05/20/2017 15:15:52
--- NOTE | 2017-05-20 15:43 | EKG ---
Date Performed: 05/19/2017 Time Performed: 11:15:13 PTAGE: 71 years EKG: SINUS BRADYCARDIA MODERATE VOLTAGE CRITERIA FOR LVH, CONSIDER NORMAL VARIANT BORDERLINE ECG PREVIOUS TRACING : 05/17/2017 19.25 Compared to prior tracing no significant change DOCTOR: Ricky Miller Interpretating Date/Time 05/20/2017 15:41:56
[2017-05-20] MEDS: ATORVASTATIN 10 MG TAB PO SCH (20:39)
[2017-05-21] VITALS (11 sets, daily range): BP systolic 133–158; BP diastolic 60–71; PULSE 49–70; RESP 20–25; TEMP 98.2–98.7; O2SAT 91–100
[2017-05-21] MEDS: INSULIN ASPART SUPPLEMENTAL SCALE SQ SCH (08:00)
[2017-05-21] MEDS: ASPIRIN 81 MG CHEW TAB PO SCH (08:51)
[2017-05-21] MEDS: FOLIC ACID 1 MG TAB PO SCH (08:51)
[2017-05-21] MEDS: MULTIVITAMINS/MINERALS THERAPEUTIC TAB PO SCH (08:51)
[2017-05-21] MEDS: THIAMINE HCL 100 MG TAB PO SCH (08:51)
[2017-05-21] MEDS: SODIUM CHLORIDE 0.9% FLUSH 10 ML FLUSH IV FLUSH SCH (08:51)
[2017-05-21] MEDS: DOCUSATE SODIUM 50 MG/SENNA 8.6 MG TAB PO SCH (08:51)
--- NOTE | 2017-05-21 13:26 | HHI.FF ---
Face to Face Verification Diagnosis: (1) Left acute arterial ischemic stroke, MCA (middle cerebral artery) (2) CVA (cerebral vascular accident) (3) Carotid artery, internal, occlusion Physical Therapy Order: Evaluate and Treat Occupational Therapy Order: Evaluate and Treat Speech Therapy Order: To Improve: Speech and communication skills, Cognitive skills, Swallowing Home Health Nursing Order: Nursing assessment with vital signs I have seen patient Susana Rockwell on 05/21/17. My clinical findings support the need for the requested home health care services because: Deconditioned w/ increased weakness Med compliance is questionable Impaired cognition/judgement I certify that my clinical findings support that this patient is homebound because: Impaired cognitive ability/safety Ken Meyers MD May 21, 2017 13:26
--- NOTE | 2017-05-21 13:29 | HHI.DCPOC ---
Discharge Care Plan Your Health Problems Are: Loss of Movements Goals to Promote Your Health * To prevent worsening of your condition and complications * To maintain your health at the optimal level Directions to Meet Your Goals Take your medications as prescribed Follow your dietary instruction Follow activity as directed Keep your appointments as scheduled Take your immunizations and boosters as scheduled If your symptoms worsen call your PCP, if no PCP go to Urgent Care Center or Emergency Room Smoking is Dangerous to Your Health. Avoid second hand smoke Call the 24-hour hour crisis hotline for domestic abuse at Ken Meyers MD May 21, 2017 13:29
--- NOTE | 2017-05-21 13:30 | HHI.DS ---
Discharge Summary Admission Date May 19, 2017 at 10:32 Discharge Date: May 21, 2017 Admitting Diagnosis CVA/TIA (1) Left acute arterial ischemic stroke, MCA (middle cerebral artery) ICD Code: I63.512 - Cerebral infarction due to unspecified occlusion or stenosis of left middle cerebral artery Procedures none Brief History - From Admission 71-year-old female with past medical history of tobacco abuse who presented for right-sided neuro symptoms. The patient states she woke up about 4 AM to go to the bathroom and noticed a mild frontal headache. She went back to sleep until about 7:30 AM. She states she woke up about 7:30 AM and noticed that her right side was more numb. She states that her hand and arm were more weak and uncoordinated than normal. She also states that that time she noticed her speech was a little bit slurred. At this time she feels that the numbness, weakness, slurred speech has improved. The headache is resolved. She denies any swallowing difficulties or vision changes. She denies any chest pain, shortness breath, recent illness, nausea, vomiting, diarrhea. She has smoked for the past 50 years. She denies any previous episodes like this. The patient currently denies any symptoms. She says that she does not have any numbness or tingling. She says her strength is currently back to normal. She says she is still smoking and drinks 4-5 beers daily. CBC/BMP: 05/19/17 1320 05/19/17 1110 Significant Findings Laboratory Tests Test 05/19/17 11:10 05/19/17 13:20 05/19/17 17:01 05/19/17 23:01 Random Glucose 107 MG/DL (74-106) Albumin 3.3 GM/DL (3.4-5.0) Troponin I 0.28 NG/ML (0.02-0.05) 0.14 NG/ML (0.02-0.05) 0.19 NG/ML (0.02-0.05) Monocytes (%) (Auto) 8.7 % (0.0-8.0) Imaging Last Impressions Chest X-Ray 05/19/17 Signed Impressions: Service Date/Time: Friday, May 19, 2017 10:57 - CONCLUSION: No acute disease. Chan Brasher MD Brain MRI 05/19/17 Signed Impressions: Service Date/Time: Friday, May 19, 2017 14:39 - CONCLUSION: 1. Evolving left MCA infarct. No significant mass effect. No hemorrhage. Cornelio Johnston MD Head CT 05/17/17 0940 Signed Impressions: Service Date/Time: Wednesday, May 17, 2017 09:54 - CONCLUSION: No acute intracranial abnormality is identified. There is an old lacune in the left basal ganglia. Chan Villegas MD Neck CTA 05/17/17 Signed Impressions: Service Date/Time: Wednesday, May 17, 2017 20:20 - CONCLUSION: 1. 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 2. The vertebral arteries are patent. The left vertebral artery is small in size. Andrea Shen MD Head Magnetic Resonance Angiography 05/17/17 Signed Impressions: Service Date/Time: Wednesday, May 17, 2017 13:17 - CONCLUSION: 1. 1. MRA characteristic of an embolic event to the left trifurcation territory as above. 2. Distal basilar also becomes quite diminutive with marked tapering proximal to the confluence with the posterior cerebral arteries. Both posterior cerebral arteries have a prominent feeder from the posterior communicating arteries off the anterior circulation, however. May 17, 2017 at 14:39 Board Certified Radiologist. This report was verified electronically. Carotid Artery Ultrasound 05/17/17 Signed Impressions: Service Date/Time: Wednesday, May 17, 2017 17:36 - CONCLUSION: 1. The common carotid arteries and external carotid arteries are patent bilaterally. No blood flow could be obtained in either internal carotid artery consistent with occlusions. 2. No flow could be obtained in the left vertebral artery. 3. The right vertebral artery demonstrate antegrade flow with elevated velocity. Further evaluation with CT angiography is recommended. Andrea Shen MD PE at Discharge Awake, sitting up in chair, no acute distress No facial droop, no slurred speech, grossly intact range of motion of all 4 extremities Hospital Course Patient was admitted, neurology was consulted. Patient was found to have a large left MCA infarct. CT angiography showed that bilateral internal carotid arteries were included; vascular surgery deemed that there was no surgical intervention would be beneficial at this point. Patient's physical neurological deficits appear to have nearly resolved. Speech therapy noted she still had some cognitive deficits and dysphagia. Meanwhile physical therapy still recommended that she undergo rehabilitation after discharge. Neurology highly recommended that the patient be anticoagulated beyond typical antiplatelet and statin therapy; after discussing the case with neurology they deemed that the patient would not be at a significantly increased hemorrhagic conversion risk if she were to be placed on a novel anticoagulant as opposed to Coumadin. Therefore the patient was started on eliquis and Lipitor. Patient would be discharged home with home health and with family at home as well. Patient has met maximum benefit from hospitalization and is clinically stable for discharge. Pt Condition on Discharge: Stable Discharge Disposition: Disch w/ Home Health Serv Discharge Time: > 30 minutes Discharge Instructions Speech Therapy-Diet Recommends: Soft, Hornitos Thickened Liquids Activities to Avoid: Driving Follow up Referrals: Neurology - 1 Month with Scooter Mock MD PCP Follow-up - 10 Days Vascular Surgery @ Vascular Surgery with Albaro Cueva MD New Medications: Apixaban (Eliquis) 5 Mg Tab 5 MG PO BID for Blood Clot Prevention, #60 TAB 0 Refills Atorvastatin (Atorvastatin) 40 Mg Tab 40 MG PO HS for Cholesterol Management, #30 TAB 0 Refills Ken Meyers MD May 21, 2017 13:30
[2017-05-21] MEDS ORDERED: APIX5TAB PO (13:33)
[2017-05-21] MEDS ORDERED: ATOR40TA16 PO (13:34)
[2017-05-21] MEDS ORDERED: APIXABAN 5 MG TABLET PO SCH (21:00)
== END 2017-05-21 17:33 | disposition home or self-care (01) | DRG 64 ==
LOC: NEPC 09:24 → NEDA 11:05 → NEPHCDU 12:17 → OBSVTOIN 05-19 10:32 → N03A 05-19 11:48
PROVIDERS: ADMIT Hospitalist; ATTEND Hospitalist
DX: I63.233 Cerebral infarction due to unspecified occlusion or stenosis of bilateral carotid arteries (principal); G93.41 Metabolic encephalopathy; I24.8 Other forms of acute ischemic heart disease; R13.10 Dysphagia, unspecified; G81.90 Hemiplegia, unspecified affecting unspecified side; I10 Essential (primary) hypertension; F10.10 Alcohol abuse, uncomplicated; F17.200 Nicotine dependence, unspecified, uncomplicated; R47.81 Slurred speech
CPT/HCPCS: 70450; 70498; 70544; 70551; 71010; 80053; 80061; 82533; 82948; 83036; 83605; 84443; 84484; 85025; 85610; 85730; 87040; 93005; 93306; 93880; 96360; 96361; E0100; G0378; G8987-GO; G8987-GP; G8988-GO; G8988-GP; G8996-GN; G8997-GN; G8998-GN; J7030; Q9967